=== PATIENT | female | born 1980 | race Asian ===

== ENCOUNTER 2017-01-24 14:30 | Inpatient (IN) | payer SELFPAY ==
[~2017-01-24] VITALS: Ht 160 cm; Wt 60.9 kg
[2017-01-24 14:53] VITALS: BP 96/56; PULSE 71; RESP 18
[2017-01-24 15:21] VITALS: Ht 160 cm; Wt 60.9 kg
[2017-01-24] MEDS ORDERED: CARBOPROST 250 MCG INJ IM PRN ×2 (15:30→23:00)
[2017-01-24] MEDS ORDERED: OXYTOCIN 30 UNITS/LR 500 ML IV SCH (15:30)
[2017-01-24] MEDS ORDERED: MISOPROSTOL 200 MCG TAB PR PRN ×2 (15:30→23:00)
[2017-01-24] MEDS ORDERED: METHYLERGONOVINE 0.2 MG INJ IM PRN ×2 (15:30→23:00)
[2017-01-24] MEDS ORDERED: CEFAZOLIN 2 GM/50 ML (PMX) 50 ML IV SCH (15:30)
[2017-01-24] MEDS ORDERED: OXYTOCIN 30 UNITS/LR 500 ML IV PRN ×2 (15:30→23:00)
[2017-01-24 15:45] LABS: ADD SCAN DIFF NO
[2017-01-24 15:48] LABS: BASOPHILS % 0.3 % (0.0-2.0); EOSINOPHILS % 0.3 % (0.0-7.0); HEMATOCRIT 37.1 % (37.0-47.0); HEMOGLOBIN 12.9 g/dl (12.0-16.0); LYMPHOCYTES # 1.7 10^3/ul (0.8-2.9); LYMPHOCYTES % 17.1 % (15.0-51.0); MEAN CORPUSCULAR HEMOGLOBIN 31.2 pg (29.0-33.0); MEAN CORPUSCULAR HGB CONC 34.8 g/dl (32.0-37.0); MEAN CORPUSCULAR VOLUME 89.6 fl (82.0-101.0); MEAN PLATELET VOLUME 10.3 fl (7.4-10.4); MONOCYTE # 0.6 10^3/ul (0.3-0.9); MONOCYTES % 6.1 % (0.0-11.0); NEUTROPHIL # 7.4 10^3/ul (1.6-7.5); NEUTROPHILS % 75.3 % (39.0-77.0); PLATELET COUNT 183 10^3/UL (140-415); RED BLOOD COUNT 4.14 10^6/ul (4.20-5.40); RED CELL DISTRIBUTION WIDTH 13.2 % (11.5-14.5); WHITE BLOOD COUNT 9.8 10^3/ul (4.8-10.8)
[2017-01-24] MEDS ORDERED: ONDANSETRON 4 MG INJ IV STA (16:01)
[2017-01-24 16:02] LABS: INR 0.92; PROTIME 12.4 Sec (12.2-14.2)
[2017-01-24 16:03] LABS: PARTIAL THROMBOPLASTIN TIME 23.9 Sec (25.0-35.0)
[2017-01-24] MEDS ORDERED: CITRIC ACID/SODIUM CITRATE 15 ML CUP ONE (16:05)
[2017-01-24] MEDS ORDERED: ONDANSETRON 4 MG INJ ONE ×2 (16:05→19:33)
[2017-01-24] MEDS: LACTATED RINGER'S 1,000 ML IV SCH ×2 (16:22→16:32)
[2017-01-24] MEDS ORDERED: CITRIC ACID/SODIUM CITRATE 15 ML CUP PO ONE (16:30)
[2017-01-24] MEDS ORDERED: PHENYLephrine (100 MCG/ML) 5ML SYG ONE ×3 (18:52→19:55)
--- NOTE | 2017-01-24 21:32 | HP ---
Date/Time of Note Date/Time of Note DATE: 01/24/17 TIME: 21:24 OB - History Hx of Present Free Text/Dictation 37y.o primigravida at 39w1d for elective primary section she was transferred from [place] at 25weeks and initially under perinatalogist care for r/o iugr and relesaed from [facility] [employer] care patient desire to have section without trial of labor. primary section is porepared after proper consent obtained Chief Complaint: for elective sec tion Estimated Due Date: January 30, 2017 : 1 Para: 0 Spontaneous : 0 Therapeutic : 0 Care: Good Care Ultrasounds: Normal mid trimester US Medical Complications: None Past Family/Social History * Past Medical, Surgical, Family and Obstetric Histories reviewed from chart. Blood Type: AB+ Rubella: immune RPR/VDRL: Negative GBS Status: Positive HBsAG: Negative OB Admission Exam Vital Signs Vital Signs Vital Signs Date Time Temp Pulse Resp B/P Pulse Ox O2 Delivery O2 Flow Rate FiO2 01/24/17 14:53 98.4 71 18 96/56 Room Air Physical Exam HEENT: WNL Heart: Rhythm Normal Lungs: Clear, Equal Abdomen: WNL Extremities: Normal Reflexes: Normal Cervical Dilatation: other Effacement: Other Station: Other Membranes: Intact Amniotic Fluid: Unevaluable Heart Rate: 140's Accelerations: Accelerations Present Decelerations: No Decelerations Varibility: Moderate Contractions on Admission: None Last 72 hours Lab Results CBC & BMP 01/24/17 15:28 OB Assessment/Plan Reason for admission: section Other Assessment: iup 39w1d Plan: Section JEANCARLOS PERSAUD MD January 24, 2017 21:32
[2017-01-24 22:45] VITALS: BP 101/55; PULSE 60; RESP 18
[2017-01-24] MEDS ORDERED: ONDANSETRON 4 MG INJ IV PRN (23:00)
[2017-01-24] MEDS ORDERED: OXYCODONE/ACETAMINOPHEN (5/325) TAB PO PRN ×2 (23:00)
[2017-01-24] MEDS ORDERED: LANOLIN 7 GM TUBE TOP PRN (23:00)
[2017-01-24] MEDS ORDERED: DIPHENHYDRAMINE 50 MG INJ IV PRN (23:00)
[2017-01-24] MEDS ORDERED: ZOLPIDEM 5 MG TAB PO PRN (23:00)
[2017-01-24 23:15] VITALS: BP 101/51; PULSE 68; RESP 18
[2017-01-25 00:15] VITALS: BP 104/55; PULSE 69; RESP 18
--- NOTE | 2017-01-25 00:16 | OPR ---
DATE OF OPERATION: 01/24/2017 PREOPERATIVE DIAGNOSIS: , 39 weeks 1 day for the elective without trial. POSTOPERATIVE DIAGNOSES: , 39 weeks 1 day for the elective without trial. Fabricio morales normal female infant. OPERATION PROCEDURE: Primary low transverse section. ANESTHESIA: Spinal. ANESTHESIOLOGIST: Dr. Velasquez. SURGEON: Evaristo Gonzales MD JOB INTERVIEWER: Pedrito Lomeli MD ESTIMATED BLOOD LOSS: Approximately 600 mL. PROCEDURE: Under proper induction of spinal anesthesia, the patient was placed in frog position, Fo shawanda catheter was introduced into the bladder, and repositioned to supine. Abdominal wall was preppe d and draped in usual aseptic manner. A transverse incision was made approximately 2 fingers above the pubic rami. Incision was carried down through the subcutaneous tissue to the anterior recti tis stoney, which was incised transversely in length of the incision. Fascial flap was created by blunt an d sharp dissection of tendinous attachment and 2 rectus muscles split in midline and peritoneal cavi ty was entered. Bladder blade was introduced and low portion of the uterus was exposed. A transver se incision was made on the visceral peritoneum, above the uterovesical reflection, and incision was carried down layer by layer, in which the amniotic membrane, ruptured, revealed clear amniotic flui d. This incision was extended and a normal female was born from the left occiput posterior p osition with assist of Kiwi vac only 2 seconds. The mouth and nose were cleaned. There was a nucha l cord, relatively tight and was flipped over and the mouth and nose were cleaned and cord was clamp ed and cut, handed to the respiratory care personnel for further care. Cord blood was obtained. Pl acenta was removed manually. Cavity was completely explored and exteriorized. Uterine incision was closed using #1 chromic catgut in continuous manner on the first layer, second layer using 0 chromi c catgut in continuous manner, including uterine serosa. Abdominal cavity was irrigated and sponge count taken, which was correct. Uterus was relocated into the abdominal cavity, uterine incisional site was checked, which was intact. Piece of Surgicel was laid on it and the parietal peritoneum wa s closed using 0 chromic catgut in continuous manner. Muscle closed with 0 chromic catgut in contin uous manner. Fascia closed with #1 Vicryl in continuous manner in 2 segments. Subcutaneous tissue irrigated with water. This layer was approximated with a 2-0 plain in continuous manner and skin cl osed with a 3-0 Monocryl in subcuticular manner. Steri-Strip applied. A pressure dressing applied. Estimated blood loss approximately 600 mL. The patient withstood the procedure well and was sent to recovery in stable condition. Dictated By: EVARISTO SKAGGS/KENJI Conf#: [id number] DID#: [id number]
[2017-01-25] MEDS: LACTATED RINGER'S 1,000 ML IV SCH ×3 (00:50→16:38)
[2017-01-25 03:50] VITALS: BP 92/50; PULSE 69; RESP 18
[2017-01-25] MEDS: IBUPROFEN 600 MG TAB PO SCH ×2 (06:00)
[2017-01-25 07:12] LABS: ADD SCAN DIFF NO
[2017-01-25 07:20] LABS: BASOPHILS % 0.2 % (0.0-2.0); EOSINOPHILS % 0.3 % (0.0-7.0); HEMATOCRIT 32.9 % (37.0-47.0); HEMOGLOBIN 11.2 g/dl (12.0-16.0); LYMPHOCYTES # 1.6 10^3/ul (0.8-2.9); LYMPHOCYTES % 12.7 % (15.0-51.0); MEAN CORPUSCULAR HEMOGLOBIN 30.9 pg (29.0-33.0); MEAN CORPUSCULAR VOLUME 90.6 fl (82.0-101.0); MEAN PLATELET VOLUME 10.4 fl (7.4-10.4); MONOCYTE # 0.6 10^3/ul (0.3-0.9); MONOCYTES % 4.7 % (0.0-11.0); NEUTROPHIL # 10.1 10^3/ul (1.6-7.5); NEUTROPHILS % 81.6 % (39.0-77.0); PLATELET COUNT 138 10^3/UL (140-415); RED BLOOD COUNT 3.63 10^6/ul (4.20-5.40); RED CELL DISTRIBUTION WIDTH 13.2 % (11.5-14.5); WHITE BLOOD COUNT 12.4 10^3/ul (4.8-10.8)
[2017-01-25 07:30] VITALS: BP 85/46; PULSE 71; RESP 18
--- NOTE | 2017-01-25 08:02 | PN ---
Date/Time of Note Date/Time of Note DATE: 01/25/17 TIME: 08:01 OB Subjective Subjective Subjective no flatus OB Objective Objective Objective vss afebrile abdomen soft wound dry lochia min calf neg for tenderness OB Assessment/Plan Other Assessment: stable post c/s#1 Other plan: as ordered JEANCARLOS PERSAUD MD January 25, 2017 08:02
[2017-01-25] MEDS: SENNA/DOCUSATE NA (8.6MG/50MG) TAB PO SCH ×2 (09:00→21:58)
[2017-01-25 12:00] VITALS: BP 98/52; PULSE 78; RESP 18
[2017-01-25 16:00] VITALS: BP 84/50; PULSE 68; RESP 18
[2017-01-25] MEDS: KETOROLAC 30 MG INJ IV PRN (17:45)
[2017-01-25 20:45] VITALS: BP 89/55; PULSE 67; RESP 19
[2017-01-26] MEDS: KETOROLAC 30 MG INJ IV PRN (02:49)
[2017-01-26 04:41] VITALS: BP 89/52; PULSE 64; RESP 19
[2017-01-26 08:00] VITALS: BP 97/59; PULSE 64; RESP 20
--- NOTE | 2017-01-26 10:56 | PN ---
Date/Time of Note Date/Time of Note DATE: 01/26/17 TIME: 10:54 OB Subjective Subjective Subjective doing well passing flatus OB Objective Objective Objective vss afebrile abdomen soft wound dry lochia min ext neg for edema and calf tenderness OB Assessment/Plan Other Assessment: satif Other plan: d/s home in am JEANCARLOS PERSAUD MD January 26, 2017 10:56
[2017-01-26] MEDS: SENNA/DOCUSATE NA (8.6MG/50MG) TAB PO SCH ×2 (11:05→21:32)
[2017-01-26] MEDS: IBUPROFEN 600 MG TAB PO SCH ×3 (11:05→23:55)
[2017-01-26 12:13] LABS: RUBELLA ANTIBODY - IGG 2.72 index
[2017-01-26 19:50] VITALS: BP 92/58; PULSE 74; RESP 20
[2017-01-27 04:45] VITALS: BP 103/52; PULSE 57; RESP 20
[2017-01-27] MEDS: IBUPROFEN 600 MG TAB PO SCH (05:45)
[2017-01-27 08:00] VITALS: BP 87/58; PULSE 55; RESP 17
[2017-01-27] MEDS: SENNA/DOCUSATE NA (8.6MG/50MG) TAB PO SCH (08:39)
[2017-01-27] MEDS ORDERED: DIPHTH/TET/ACEL PERTUSS (ADULT) 0.5 ML VIAL IM* ONE (09:00)
== END 2017-01-27 11:40 | disposition home or self-care (01) | DRG 766 ==
LOC: L-D 14:30 → PP1 22:42
PROVIDERS: ADMIT Obstetrics & Gynecology; ATTEND Obstetrics & Gynecology
PROC: 10D00Z1 Extraction of Products of Conception, Low, Open Approach (ICD-10-PCS; principal; 2017-01-24 17:00)
DX: O75.82 Onset (spontaneous) of labor after 37 completed weeks of gestation but before 39 completed weeks gestation, with delivery by (planned) cesarean section (principal); Z37.0 Single live birth; Z3A.39 39 weeks gestation of pregnancy
CPT/HCPCS: 85025; 85610; 85730; 86592; 86703; 86762; 86850; 86900; 86901; 87340; 90715; 94760; 99464; J0690; J1885; J2370; J2405; J2590; J7120